=== PATIENT | male | born 1985 | race Caucasian/White ===

== ENCOUNTER 2023-11-06 10:44 | Emergency (ER) | payer OTHER ==
[~2023-11-06] VITALS: Ht 188 cm; Wt 95.5 kg
[2023-11-06 11:23] VITALS: TEMP 98.6
[2023-11-06 11:49] LABS: EOSINOPHILS % (AUTO) 1.9 % (1.0-6.0); HEMATOCRIT 44.2 % (41-53); HEMOGLOBIN 14.4 g/dL (13.5-17.5); LYMPHOCYTES # (AUTO) 1.3 K/uL (1.0-4.8); LYMPHOCYTES % (AUTO) 21.2 % (22.0-44.0); MEAN CORPUSCULAR HEMOGLOBIN 31.4 pg (26.0-34.0); MEAN CORPUSCULAR HGB CONC 32.6 G/dL (31.0-37.0); MEAN CORPUSCULAR VOLUME 96 fL (80-100); MONOCYTES # (AUTO) 0.6 K/uL (0.1-1.0); MONOCYTES % (AUTO) 10.1 % (2.0-9.0); NEUTROPHILS # (AUTO) 4.1 K/uL (1.8-7.7); NEUTROPHILS % (AUTO) 65.8 % (40.0-70.0); PLATELET COUNT (AUTO) 272 K/uL (150-450); RED BLOOD CELL COUNT(AUTO) 4.59 MIL/uL (4.50-5.90); WHITE BLOOD COUNT (AUTO) 6.2 K/uL (4.5-11.0)
[2023-11-06] MEDS: ACETAMINOPHEN 500 MG TABLET PO ONE (11:56)
[2023-11-06 12:00] LABS: ANION GAP 7 mmol/L (8-16); CALCIUM, TOTAL 9.2 mg/dL (8.8-10.5); CARBON DIOXIDE 29 mmol/L (22-29); CHLORIDE 103 mmol/L (98-107); CREATININE 0.66 mg/dL (0.60-1.30); GLOMERULAR FILTR. RATE CALC > 60 mL/min (>60); GLUCOSE,RANDOM 89 mg/dL (70-110); POTASSIUM 4.2 mmol/L (3.5-5.1); SODIUM SERUM 139 mmol/L (136-145); UREA NITROGEN, BLOOD 10 mg/dL (7-18)
[2023-11-06 12:07] LABS: ALANINE AMINOTRANSFERASE 25 U/L (12-78); ALBUMIN 4.3 g/dL (3.4-5.0); ALKALINE PHOSPHATASE 67 U/L (46-116); ASPARTATE AMINOTRANSFERASE 19 U/L (15-37); BILIRUBIN,TOTAL 0.5 mg/dL (0.1-1.0); TOTAL PROTEIN, SERUM 7.5 g/dL (6.4-8.2)
[2023-11-06 12:11] LABS: APPEARANCE,URINE CLEAR (CLEAR); BILIRUBIN,URINE NEGATIVE (NEGATIVE); COLOR,URINE COLORLESS (YELLOW); GLUCOSE, URINE (UA) NEGATIVE (NEGATIVE); KETONES,URINE NEGATIVE (NEGATIVE); LEUKOCYTE ESTERASE ,URINE NEGATIVE (NEGATIVE); NITRATE,URINE NEGATIVE (NEGATIVE); OCCULT BLOOD,URINE NEGATIVE (NEGATIVE); PROTEIN,URINE NEGATIVE (NEGATIVE); SPECIFIC GRAVITIY, URINE 1.007 (1.003-1.030); UROBILINOGEN,URINE <=1.0 mg/dL (<=1.0)
[2023-11-06] MEDS ORDERED: SODIUM CHLORIDE 0.9% 100 ML ONE (12:11)
[2023-11-06] MEDS ORDERED: IOHEXOL 350 MG/ML 100 ML VIAL ONE (12:11)
[2023-11-06 13:15] VITALS: BP 132/79; PULSE 84; RESP 16
== END 2023-11-06 13:30 ==
LOC: EMS 10:45
DX: R59.0 Localized enlarged lymph nodes (principal)
CPT/HCPCS: 99285; 74177; 93971; 80053; 81003; 85025; 36415; Q9967; J7050

== ENCOUNTER 2024-01-30 15:06 | Emergency (ER) | payer OTHER ==
[~2024-01-30] VITALS: Ht 180.3 cm; Wt 90.9 kg
[2024-01-30 16:05] VITALS: BP 117/68; PULSE 64; RESP 14; TEMP 98.6
[2024-01-30] MEDS: ACETAMINOPHEN 500 MG TABLET PO ONE (16:39)
== END 2024-01-30 16:40 ==
LOC: EMS 15:11
DX: K64.9 Unspecified hemorrhoids (principal)
CPT/HCPCS: 99283